=== PATIENT | male | born 1995 | race African-American/Black ===

== ENCOUNTER 2018-06-23 11:23 | Emergency (ER) | payer OTHER ==
[~2018-06-23] VITALS: Ht 175.3 cm; Wt 106.1 kg
[2018-06-23] MEDS ORDERED: HYDROcodone/APAP 5/325MG 1 TAB TABLET PO ONE (11:45)
--- NOTE | 2018-06-23 12:02 | PHYS DOC ---
Past History Past Medical History: No Pertinent History Past Surgical History: No Surgical History Alcohol Use: None Drug Use: None Adult General Chief Complaint Chief Complaint: LOWEREXTREMITY INJURY HPI HPI Patient is a 22-year-old male who presents with right ankle pain. He was playing "Titan ball" a combination of football and soccer at physical training this morning when he fell. He has been able to weight-bear with severe pain increased pain with movement. He was sent from an outlying facility after x-rays were taken there because a fracture was noted. Improved pain with holding still. He has not taken any pain medication. No numbness or tingling. No knee pain.[] Review of Systems Review of Systems Constitutional: Denies fever or chills [] Eyes: Denies change in visual acuity, redness, or eye pain [] HENT: Denies nasal congestion or sore throat [] Respiratory: Denies cough or shortness of breath [] Cardiovascular: No chest pain or palpitations[] GI: Denies abdominal pain, nausea, vomiting, bloody stools or diarrhea [] : Denies dysuria or hematuria [] Musculoskeletal: Denies back pain see history of present illness[] Integument: Denies rash or skin lesions [] Neurologic: Denies headache, focal weakness or sensory changes [] Endocrine: Denies polyuria or polydipsia [] All other systems were reviewed and found to be within normal limits, except as documented in this note. Current Medications Current Medications Current Medications Medications (Trade) Dose Ordered Sig/Lanette Start Time Stop Time Status Last Admin Dose Admin Acetaminophen/ Hydrocodone Bitart (Lortab 5/325) 2 tab 1X ONCE 06/23/18 11:45 06/23/18 11:46 DC 06/23/18 11:47 2 TAB Allergies Allergies Allergies Coded Allergies Type Severity Reaction Last Updated Verified No Known Drug Allergies 06/23/18 No Physical Exam Physical Exam Constitutional: Well developed, well nourished, mild to moderate discomfort, non-toxic appearance. [] HENT: Normocephalic, atraumatic, bilateral external ears normal, oropharynx moist, no oral exudates, nose normal. [] Eyes: PERRLA, EOMI, conjunctiva normal, no discharge. [] Neck: Normal range of motion, no tenderness, supple, no stridor. [] Cardiovascular:Heart rate regular rhythm, no murmur [] Lungs & Thorax: Bilateral breath sounds clear to auscultation [] Abdomen: Not examined. [] Skin: Warm, dry, no erythema, no rash. [] Back: No tenderness, no CVA tenderness. [] Extremities: no cyanosis, no clubbing. Right ankle shows Edema and tenderness over the lateral malleolus. Mild tenderness over the medial malleolus. No base of the fifth metatarsal tenderness. Patient is distal neurovascularly intact. No knee tenderness on the right side. A joint above and joined below were evaluated and were normal. The other extremities have no tenderness, no edema.[] Neurologic: Alert and oriented X 3, normal motor function, normal sensory function, no focal deficits noted. [] Psychologic: Affect normal, judgement normal, mood normal. [] Current Patient Data Vital Signs Vital Signs Date Time Temp Pulse Resp B/P (MAP) Pulse Ox O2 Delivery O2 Flow Rate FiO2 06/23/18 11:47 16 Room Air 06/23/18 11:30 98.4 66 97 EKG EKG [] Radiology/Procedures Radiology/Procedures PROCEDURE: ANKLE RIGHT 3V ANKLE RIGHT 3V Clinical Indication: RIGHT ANKLE PAIN, INJURY FROM PLAYING FOOTBALL/SOCCER. SEVERE RIGHT ANKLE PAIN. Comparison: None. Findings: There is acute traumatic oblique fracture of the distal diaphysis of the fibula. There is negligible posterior displacement of the distal fracture fragment. Fracture line is about 5.5 cm proximal to the end. There is lateral soft tissue swelling and subcutaneous edema. The mineralization is normal. There is slight widening of the medial clear space. Cannot exclude syndesmotic injury. There is no acute fracture of the tibia. Probable ankle joint effusion. IMPRESSION: Acute traumatic fracture of the distal fibula. [] Course & Med Decision Making Course & Med Decision Making Pertinent Labs and Imaging studies reviewed. (See chart for details) Medical decision making: Patient has a distal fibula fracture without significant displacement. No evidence of an ankle dislocation. No evidence of base of the fifth metatarsal tenderness. No evidence of [place]uve fracture. No evidence of neurologic or vascular compromise. ED course: Patient arrived, was placed in bed, and tolerated exam well. Due to the quality of the images sent with the patient our own images were obtained. The fracture is noted above. He was in oral pain medication which did significantly improve his discomfort. He was placed in a splint. He was distal neurologically intact after splint placement. He was discharged in improved condition.[] Dragon Disclaimer Dragon Disclaimer This electronic medical record was generated, in whole or in part, using a voice recognition dictation system. Departure Departure: Impression: Primary Impression: Closed fracture of right distal fibula Disposition: HOME, SELF-CARE Condition: IMPROVED Referrals: PCP,UNKNOWN (PCP) RADHA ZHONG MD Call today to set up follow-up appointment. Patient Instructions: Crutch Use, Fibular Fracture, Ankle, Adult, Undisplaced, Treated with Immobilization Additional Instructions: Keep the splint clean and dry. No weightbearing with the right foot. Call to set up orthopedic appointment. Return to the ER if worsening pain or any other concerns. Scripts Hydrocodone Bit/Acetaminophen (NORCO 5-325 TABLET) 1 Each Tablet 1-2 TAB PO Q4-6HRS for severe pain, #20 TAB Prov: TRUDY ROSENTHAL DO 06/23/18 Meloxicam (MELOXICAM) 7.5 Mg Tablet 7.5 MG PO DAILY for PAIN, #20 TAB Prov: TRUDY ROSENTHAL DO 06/23/18 Problem Qualifiers Primary Impression: Closed fracture of right distal fibula Encounter type: initial encounter Fracture morphology: unspecified fracture morphology Qualified Codes: S82.831A - Other fracture of upper and lower end of right fibula, initial encounter for closed fracture TRUDY ROSENTHAL DO Jun 23, 2018 12:02
--- NOTE | 2018-06-23 12:07 | RAD ---
ANKLE RIGHT 3V Clinical Indication: RIGHT ANKLE PAIN, INJURY FROM PLAYING FOOTBALL/SOCCER. SEVERE RIGHT ANKLE PAIN. Comparison: None. Findings: There is acute traumatic oblique fracture of the distal diaphysis of the fibula. There is negligible posterior displacement of the distal fracture fragment. Fracture line is about 5.5 cm proximal to the end. There is lateral soft tissue swelling and subcutaneous edema. The mineralization is normal. There is slight widening of the medial clear space. Cannot exclude syndesmotic injury. There is no acute fracture of the tibia. Probable ankle joint effusion. IMPRESSION: Acute traumatic fracture of the distal fibula. Electronically signed by: Luis Carlos Schwab MD (06/23/2018 12:05 PM) [id number]
[2018-06-23] MEDS ORDERED: MELO7.5T29 PO (12:19)
[2018-06-23] MEDS ORDERED: HYDR-3165 PO (12:19)
[2018-06-23 12:41] VITALS: BP 111/66
== END 2018-06-23 12:45 | disposition home or self-care (01) ==
LOC: ER 11:23
DX: S82.831A Other fracture of upper and lower end of right fibula, initial encounter for closed fracture (principal); W18.39XA Other fall on same level, initial encounter; Y93.A9 Activity, other involving cardiorespiratory exercise; Y92.89 Other specified places as the place of occurrence of the external cause; Y99.8 Other external cause status
CPT/HCPCS: 29515; 73610; 99284